=== PATIENT | male | born 1985 | race Caucasian/White ===

== ENCOUNTER 2024-05-13 13:51 | Emergency (ER) | payer MEDICARE, OTHER ==
[~2024-05-13] VITALS: Ht 177.8 cm; Wt 92.0 kg
[2024-05-13 14:00] VITALS: O2SAT 98
[2024-05-13 21:00] VITALS: BP 120/72; PULSE 100; RESP 18; TEMP 36.8; O2SAT 96
== END 2024-05-13 21:15 ==
LOC: ER 14:08
DX: S09.90XA Unspecified injury of head, initial encounter (principal); E11.9 Type 2 diabetes mellitus without complications; I10 Essential (primary) hypertension; Z86.73 Personal history of transient ischemic attack (TIA), and cerebral infarction without residual deficits; W06.XXXA Fall from bed, initial encounter; Y93.89 Activity, other specified; Y92.89 Other specified places as the place of occurrence of the external cause; Y99.8 Other external cause status
CPT/HCPCS: 73030; 99284

== ENCOUNTER 2024-05-19 01:42 | Emergency (ER) | payer MEDICARE, MEDICAID ==
[~2024-05-19] VITALS: Ht 180.3 cm; Wt 93.0 kg
[2024-05-19 01:56] VITALS: TEMP 36.6; O2SAT 98
[2024-05-19 04:20] VITALS: BP 127/73; PULSE 95; RESP 16; O2SAT 97
== END 2024-05-19 04:20 | disposition home or self-care (01) ==
LOC: ER 01:42
DX: S91.301A Unspecified open wound, right foot, initial encounter (principal); I10 Essential (primary) hypertension; Z86.73 Personal history of transient ischemic attack (TIA), and cerebral infarction without residual deficits; X58.XXXA Exposure to other specified factors, initial encounter; Y93.89 Activity, other specified; Y92.89 Other specified places as the place of occurrence of the external cause; Y99.8 Other external cause status
CPT/HCPCS: 99281